=== PATIENT | male | born 1980 | race Caucasian/White ===

== ENCOUNTER 2024-09-05 06:22 | Day surgery (SDC) | payer BC, SELFPAY | END 2024-09-05 09:04 | disposition home or self-care (01) | LOC: GI 06:22 | PROVIDERS: ATTENDING PHYSICIAN Internal Medicine; FAMILY PHYSICIAN Family Medicine | DX: Z12.11 Encounter for screening for malignant neoplasm of colon (principal); D12.3 Benign neoplasm of transverse colon; D12.5 Benign neoplasm of sigmoid colon; K63.5 Polyp of colon; K57.30 Diverticulosis of large intestine without perforation or abscess without bleeding; K64.8 Other hemorrhoids; Z80.0 Family history of malignant neoplasm of digestive organs | CPT/HCPCS: 45385; 45380; 88305 ==

== ENCOUNTER → 2024-11-01 08:11 | Outpatient (REF) | payer BC, SELFPAY | LOC: HWRAD 08:11 | PROVIDERS: ATTENDING PHYSICIAN Otolaryngology; FAMILY PHYSICIAN Family Medicine | DX: J33.0 Polyp of nasal cavity (principal); J32.2 Chronic ethmoidal sinusitis | CPT/HCPCS: 70486 ==

== ENCOUNTER → 2025-01-12 13:58 | Outpatient (REF) | payer SELFPAY | LOC: HWRAD 13:58 | PROVIDERS: ATTENDING PHYSICIAN Family Medicine | DX: E78.1 Pure hyperglyceridemia (principal) | CPT/HCPCS: 75571 ==

== ENCOUNTER 2025-01-18 06:23 | Day surgery (SDC) | payer BC, SELFPAY ==
[2025-01-18] VITALS (9 sets, daily range): BP systolic 110–137; BP diastolic 70–92; BMI 30.7
[2025-01-18] MEDS: NORMOSOL-R/PLASMALYTE-A 1000 IV (10:03)
[2025-01-18] MEDS: DILAUDID 0.25 MG IV (14:15)
== END 2025-01-18 15:31 | disposition home or self-care (01) ==
LOC: SDS 06:23
PROVIDERS: ATTENDING PHYSICIAN Otolaryngology
DX: J33.9 Nasal polyp, unspecified (principal); J32.0 Chronic maxillary sinusitis
CPT/HCPCS: 31267; 88304; 88311